=== PATIENT | male | born 1985 | race Caucasian/White ===

== ENCOUNTER 2017-10-21 18:45 | Emergency (ER) | payer BC ==
[2017-10-21] MEDS ORDERED: Acetaminophen/oxyCODONE 325-5 MG Tab PO ONE ×2 (18:48→19:37)
[2017-10-21] MEDS ORDERED: Silver Sulfadiazine 1% Crm 50 GM Tube TOP ONE (18:49)
--- NOTE | 2017-10-21 18:55 | EDM.PDOC ---
ED HPI GENERAL MEDICAL PROBLEM - General Chief Complaint: Burn Stated Complaint: RIGHT HAND BURN Time Seen by Provider: 10/21/17 18:48 Source of Information: Reports: Patient History Limitations: Reports: No Limitations - History of Present Illness INITIAL COMMENTS - FREE TEXT/NARRATIVE: Patient is a 32-year-old gentleman who presents to the emergency department this afternoon with a complaint of burn to his right hand. Patient states that he was welding at work and accidentally touched a hot pipe with right hand. Patient was not wearing a glove. Patient denies any other injury, chest pain, shortness of breath, smoke inhalation, and is up-to-date with tetanus. Onset: Today Onset Date: 10/21/17 Onset Time: 18:00 Duration: Minutes: Location: Reports: Upper Extremity, Right Quality: Reports: Burning Severity: Moderate Improves with: Reports: None Worsens with: Reports: None Context: Reports: Other (Contact with hot pipe) Associated Symptoms: Reports: No Other Symptoms - Related Data Allergies Allergy/AdvReac Type Severity Reaction Status Date / Time No Known Drug Allergies Allergy Cannot Verified 10/21/17 19:03 Remember Home Meds: Home Meds Cephalexin [Keflex] 500 mg PO TID #21 capsule 10/21/17 [Rx] ED ROS GENERAL - Review of Systems Review Of Systems: ROS reveals no pertinent complaints other than HPI. Constitutional: Reports: No Symptoms HEENT: Reports: No Symptoms Respiratory: Reports: No Symptoms Cardiovascular: Reports: No Symptoms Endocrine: Reports: No Symptoms GI/Abdominal: Reports: No Symptoms : Reports: No Symptoms Musculoskeletal: Reports: No Symptoms Skin: Reports: Burn(s) (To right palm) Neurological: Reports: No Symptoms Psychiatric: Reports: No Symptoms Hematologic/Lymphatic: Reports: No Symptoms Immunologic: Reports: No Symptoms ED EXAM, BURN/SMOKE INHALATION - Physical Exam Exam: See Below Exam Limited By: No Limitations General Appearance: Alert, WD/WN, No Apparent Distress Mouth/Throat: No Symptoms Reported Head: No Symptoms Neck: No Symptoms Respiratory: No Respiratory Distress, Lungs Clear Extremities: Other (As below) Neurological: Alert, Oriented, Normal Cognition Psychiatric: Normal Affect, Normal Mood Skin Exam: Warm, Dry, Other (First and second-degree cr to right palm and digits 1 through 4. Cr are not circumferential) Course - Orders/Labs/Meds Orders: Active Orders 24 hr Category Date Time Status Silver Sulfadiazine [Silvadene 1% Cream 50 GM] Med 10/21/17 18:49 Once 1 gm TOP ONETIME ONE Medication Orders Silver Sulfadiazine (Silvadene 1% Cream 50 Gm) 1 gm TOP ONETIME ONE Stop: 10/21/17 18:50 Meds: Medications Generic Name Dose Route Start Last Admin Trade Name Freq PRN Reason Stop Dose Admin Silver Sulfadiazine 1 gm 10/21/17 18:49 Silvadene 1% Cream 50 Gm TOP 10/21/17 18:50 ONETIME ONE Discontinued Medications Generic Name Dose Route Start Last Admin Trade Name Freq PRN Reason Stop Dose Admin Oxycodone/Acetaminophen 1 tab 10/21/17 18:48 Percocet 325-5 Mg PO 10/21/17 18:49 ONETIME ONE - Re-Assessments/Exams Free Text/Narrative Re-Assessment/Exam: 10/21/17 19:35 Patient afebrile, nontoxic appearing, vital signs stable, pain controlled. Hand thoroughly cleaned, Silvadene cream applied, nonadhesive dressing applied. Instructions given to patient and girlfriend. Patient will follow-up with PCP in 2 days. Patient will return to the ER sooner if swelling, worsening blisters, or pain increases. Departure - Departure Time of Disposition: 19:38 Disposition: Home, Self-Care 01 Condition: Good Clinical Impression: Burn of hand, right, second degree Qualifiers: Encounter type: initial encounter Burn of hand location: multiple fingers including thumb Qualified Code(s): T23.241A - Burn of second degree of multiple right fingers (nail), including thumb, initial encounter - Discharge Information Instructions: Burn Care, Adult, [id number], Pain Medicine Instructions, Easy- to-Read, Second-Degree Burn, Adult Forms: ED Department Discharge Additional Instructions: Follow-up with PCP in 2 days. Return to emergency department sooner if swelling , worsening blisters, or pain persists. - My Orders Last 24 Hours: My Active Orders 10/21/17 18:49 Silver Sulfadiazine [Silvadene 1% Cream 50 GM] 1 gm TOP ONETIME ONE - Assessment/Plan Last 24 Hours: My Active Orders 10/21/17 18:49 Silver Sulfadiazine [Silvadene 1% Cream 50 GM] 1 gm TOP ONETIME ONE Assessment:: Burn to right hand Plan: Recheck in 2 days
[2017-10-21] MEDS ORDERED: Cephalexin 250 MG Cap PO ONE (19:37)
== END 2017-10-21 20:06 | disposition home or self-care (01) ==
LOC: KA.ED 18:45
DX: T23.241A Burn of second degree of multiple right fingers (nail), including thumb, initial encounter (principal); X15.8XXA Contact with other hot household appliances, initial encounter
CPT/HCPCS: 16020; 99283; A9270

== ENCOUNTER 2020-05-07 09:02 | Emergency (ER) | payer BC ==
[2020-05-07] MEDS: Tetracaine HCl/PF 0.5% 4 ML Bottle EYERT ONE (09:45)
[2020-05-07] MEDS: Ciprofloxacin 0.3% Ophth Soln 5 ML Bottle EYERT SCH (10:10)
--- NOTE | 2020-05-07 10:11 | EDM.PDOC ---
ED HPI GENERAL MEDICAL PROBLEM - General Chief Complaint: General Stated Complaint: OBJECT IN RIGHT EYE Time Seen by Provider: 05/07/20 09:40 Source of Information: Reports: Patient History Limitations: Reports: No Limitations - History of Present Illness INITIAL COMMENTS - FREE TEXT/NARRATIVE: Patient presents with speck in right eye. 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 He can see it and tried to get it out with a Q-tip but wasn't successful. It is quite uncomfortable. He hoped it would get better during the night but it didn't. - Related Data Allergies Allergy/AdvReac Type Severity Reaction Status Date / Time bee pollen Allergy Nausea Verified 05/07/20 09:24 Home Meds: Home Meds . [No Known Home Meds] 05/07/20 [History] Past Medical History HEENT History: Reports: None Cardiovascular History: Reports: None Respiratory History: Reports: None Gastrointestinal History: Reports: None Genitourinary History: Reports: None Musculoskeletal History: Reports: None Neurological History: Reports: None Psychiatric History: Reports: None Endocrine/Metabolic History: Reports: Obesity/BMI 30+ Hematologic History: Reports: None Immunologic History: Reports: None Oncologic (Cancer) History: Reports: None Dermatologic History: Reports: Psoriasis - Infectious Disease History Infectious Disease History: Reports: Chicken Pox - Past Surgical History HEENT Surgical History: Reports: None Cardiovascular Surgical History: Reports: None Respiratory Surgical History: Reports: None GI Surgical History: Reports: None Male Surgical History: Reports: Circumcision Endocrine Surgical History: Reports: None Neurological Surgical History: Reports: None Musculoskeletal Surgical History: Reports: None Oncologic Surgical History: Reports: None Dermatological Surgical History: Reports: None Social & Family History - Family History Family Medical History: No Pertinent Family History - Tobacco Use Tobacco Use Status *Q: Current Every Day Tobacco User Years of Tobacco use: 15 Packs/Tins Daily: 1 - Caffeine Use Caffeine Use: Reports: Coffee, Soda, Tea - Recreational Drug Use Recreational Drug Use: No ED ROS GENERAL - Review of Systems Review Of Systems: See Below Constitutional: Denies: Fever, Malaise, Weakness HEENT: Reports: Eye Pain. Denies: Ear Pain, Throat Pain, Vision Change (no glasses or contacts) Respiratory: Denies: Shortness of Breath, Cough Cardiovascular: Denies: Chest Pain, Lightheadedness Endocrine: Reports: No Symptoms GI/Abdominal: Reports: No Symptoms : Reports: No Symptoms Musculoskeletal: Reports: No Symptoms Skin: Reports: No Symptoms Neurological: Reports: No Symptoms ED EXAM, GENERAL - Physical Exam Exam: See Below Exam Limited By: No Limitations General Appearance: Alert, WD/WN, No Apparent Distress Eye Exam: Right Eye: Foreign Body, Left Eye: Normal Inspection, Bilateral Eye: EOMI, PERRL Ears: Normal External Exam, Hearing Grossly Normal Nose: Normal Inspection, No Blood Throat/Mouth: Normal Inspection, Normal Voice, No Airway Compromise Head: Atraumatic, Normocephalic Neck: Normal Inspection, Full Range of Motion Respiratory/Chest: No Respiratory Distress, Lungs Clear, Normal Breath Sounds, No Accessory Muscle Use Cardiovascular: Regular Rate, Rhythm, No Murmur GI/Abdominal: No Distention Neurological: Alert, Oriented, Normal Cognition, No Motor/Sensory Deficits Psychiatric: Normal Affect, Normal Mood Skin Exam: Warm, Dry, Intact, Normal Color, No Rash ED EYE PROCEDURE - Eye Procedure Alcaine Drops Administered: Yes Eye FB Removal: Removal w/ Cotton Swab, Removal w/ Needle Antibiotic Oinment/Drps Admin: Right Eye Progress: Tetracaine drops were used for anesthesia. Fluorescein stain used. Moistened Q-tip, followed by a 16-ga needle were used in attempts to dislodge the foreign body embedded in the cornea at about the 8:00 position from the pupil. Multiple attempts were unsuccessful. To avoid further insult to the eye I feel it is best to have patient see an opthalmologist/shell press operator tomorrow for removal. I discussed this with him and he is comfortable with it. Patient tolerated the procedure well. An eye patch was placed over the eye for comfort. Course - Vital Signs Last Recorded V/S: Last Vital Signs Temp 98.2 F 05/07/20 09:11 Pulse 73 05/07/20 09:11 Resp 18 05/07/20 09:11 BP 149/97 H 05/07/20 09:11 Pulse Ox 97 05/07/20 09:11 - Orders/Labs/Meds Meds: Medications Discontinued Medications Generic Name Dose Route Start Last Admin Trade Name Freq PRN Reason Stop Dose Admin Ciprofloxacin Confirm 05/07/20 10:00 Ciloxan 0.3% Ophth Soln Administered 05/07/20 10:01 Dose 5 ml .ROUTE .STK-MED ONE Tetracaine HCl Confirm 05/07/20 09:19 Tetracaine 0.5% Steri-Unit Zofia Administered 05/07/20 09:20 Dose 4 ml .ROUTE .STK-MED ONE Tetracaine HCl 1 ml 05/07/20 09:22 Tetracaine 0.5% Steri-Unit Zofia EYERT 05/07/20 09:23 ASDIRECTED ONE - Re-Assessments/Exams Free Text/Narrative Re-Assessment/Exam: 05/07/20 10:30 Findings and treatment plan were discussed with patient. He was discharged to home in stable condition with Tramadol 50 mg (4 tabs) to use if needed, in addition to his OTC. Departure - Departure Time of Disposition: 10:04 Disposition: Home, Self-Care 01 Condition: Good Clinical Impression: Foreign body of right eye Qualifiers: Encounter type: initial encounter Qualified Code(s): T15.91XA - Foreign body on external eye, part unspecified, right eye, initial encounter - Discharge Information Referrals: Elisabeth Hanson MD [Primary Care Provider] - Additional Instructions: Use 2 drops of the antibiotic drops in your right eye every 4 hours for the next 3 days unless instructed differently by the eye doctor. Call the eye clinic in [place] ([facility]) at [phone] first thing tomorrow morning and tell them you were in ER today with a foreign body that was not able to be removed. Take Ibuprofen 600 mg and/or Tylenol 500-1000 mg every 8 hours as needed for pain control. You can use the Tramadol every 4-5 hours as needed for pain as well. Use the eye patch if helping pain but not necessary if it doesn't seem to provide any benefit. Sepsis Event Note (ED) - Evaluation Sepsis Screening Result: No Definite Risk - Focused Exam Vital Signs: Vital Signs Temp Pulse Resp BP Pulse Ox 05/07/20 09:11 98.2 F 73 18 149/97 H 97
[2020-05-07] MEDS: Ciprofloxacin 0.3% Ophth Soln 5 ML Bottle ONE (10:12)
[2020-05-07] MEDS: Tetracaine HCl/PF 0.5% 4 ML Bottle ONE (10:12)
[2020-05-07] MEDS: traMADol 50 MG Tab PO ONE (10:15)
== END 2020-05-07 10:30 | disposition home or self-care (01) ==
LOC: KA.ED 09:02
DX: T15.01XA Foreign body in cornea, right eye, initial encounter (principal); E66.9 Obesity, unspecified; Z68.33 Body mass index [BMI] 33.0-33.9, adult; Z91.030 Bee allergy status; Z72.0 Tobacco use
CPT/HCPCS: 65220; 99283; A9270-GY